=== PATIENT | female | born 1975 | race Caucasian/White ===

== ENCOUNTER 2017-01-13 13:33 | Emergency (ER) | payer OTHER ==
--- NOTE | 2017-01-13 13:49 | ED Physician Documentation ---
Upper Extremity Problem - HISTORIAN Historian: patient - HPI Chief Complaint: Upper Extremity Injury Location: R arm Onset: days ago (Mondy) Timing: still present Recent Injury: Yes (extravication of IV contrast dye) Where: home Severity: moderate Associated Symptoms: denies: fever, chills Further Comments: yes (Patient who had a MRI scan done with IV contrast dye, patient states at the time of the MRI she had some pain. The next day started to have some swelling to the right dorsal hand. Was seen in clinic and started on a medrol dose amelie. Patient has some mild improvement however today started to hasve some more swelling and tenderness/hardness to a vein in the forearm.) - ROS CONST: no problems - PAST HX Past History: cervical disc disease, other (cranial cyst) Other History: none Surgeries/Procedures: cholecystectomy, BTL Allergies/Adverse Reactions: Allergies Allergy/AdvReac Type Severity Reaction Status Date / Time codeine Allergy Verified 01/13/17 13:56 Penicillins Allergy Verified 01/13/17 13:56 Home Medications: Ambulatory Orders Medication Instructions Recorded Cyclobenzaprine HCl [Flexeril] 5 mg PO Q6 PRN #20 tablet 01/13/17 Methylprednisolone [Medrol] 4 mg PO BID #6 tablet 01/13/17 - SOCIAL HX Smoking History: less than 1 pack/day (1/2 ppd) Alcohol Use: occasionally Drug Use: none - FAMILY HX Family History: no significant history - VITAL SIGNS Vital Signs: Vital Signs Temp Pulse Resp BP Pulse Ox 98.2 F 82 16 107/69 96 01/13/17 14:19 01/13/17 14:19 01/13/17 14:19 01/13/17 14:19 01/13/17 14:19 - REVIEWED ASSESSMENTS Nursing Assessment Reviewed: Yes Vitals Reviewed: Yes Upper Extremity Problem - EXAM General Appearance: alert, mild distress Skin: warm/dry Shoulder Exam: normal inspection, non-tender Elbow/Forearm Exam: pain, soft tissue tenderness (thrombophlebitis of vein in forearm) Wrist Exam: normal inspection Hand Exam: swelling (to dorsum of hand) CVS: reg rate & rhythm, heart sounds normal Vascular: no vascular compromise Peripheral: sensation nml, motor nml Respiratory: no resp. distress. No: wheezes, rales, rhonchi Discharge Clincal Impression: Phlebitis Prescriptions: Cyclobenzaprine HCl [Flexeril] 5 mg PO Q6 PRN #20 tablet PRN Reason: muscle cramping Methylprednisolone [Medrol] 4 mg PO BID #6 tablet Referrals: Ning Briceño MD [Primary Care Provider] - 2 Days Additional Instructions: Warm compress to the forearm, take medications as prescribed. Take some Aleve 2 tablets twice a day with food as needed for pain. Home Medications: Ambulatory Orders Cyclobenzaprine HCl [Flexeril] 5 mg PO Q6 PRN #20 tablet 01/13/17 Methylprednisolone [Medrol] 4 mg PO BID #6 tablet 01/13/17 Condition: Stable Disposition: 01 HOME, SELF-CARE Decision to Admit: NO Date of Decison to Admit: 01/13/17 Decision Time: 14:13
[2017-01-13 13:55] VITALS: BP 107/69
== END 2017-01-13 14:19 | disposition home or self-care (01) ==
LOC: ED 13:33
DX: I80.9 Phlebitis and thrombophlebitis of unspecified site (principal)
CPT/HCPCS: 99283

== ENCOUNTER 2017-04-06 08:55 | Outpatient (CLI) | payer OTHER ==
--- NOTE | 2017-04-06 15:31 | Diagnostic Imaging Report ---
MAYTE MASTERS [facility] [address] [facility] [address] [place] [address]. [id number] Report Submission Date: Apr 06, 2017 9:26:16 AM CDT Patient Study Name: TIFFANY MILLER Date: Apr 06, 2017 9:05:05 AM CDT Modality Type: US Gender: F Description: US RETROPERITONEAL LIMIT : 75 Institution: [facility] Physician: MAYTE MASTERS Renal ultrasound Clinical history: Followup for possible right renal cyst seen on an outside MRI . Routine renal ultrasound and demonstrate the following: Right kidney measures 10.37 x 4.4 x 4.5 cm with total volume 110 ml. No hydronephrosis. 9 mm low density lesion in the lower pole of the right kidney felt to be consistent with small cyst . Left kidney measures 10.3 x 5.9 x 4.2 cm with total volume of 133 ml . No visible left hydronephrosis, no visible solid or cystic left renal masses. Impression: 9 mm cyst in the lower pole of the right kidney , no additional images are recquired . Normal left kidney . Electronically signed on Apr 06, 2017 9:26:16 AM CDT by: Sam BOWLES
== END 2017-04-06 08:56 ==
LOC: RAD 08:55
PROVIDERS: ATTEND Physician Assistant
DX: Q61.01 Congenital single renal cyst (principal)
CPT/HCPCS: 76775

== ENCOUNTER 2019-03-10 10:58 | Outpatient (CLI) | payer OTHER ==
--- NOTE | 2019-03-12 14:55 | Diagnostic Imaging Report ---
SIERRA LEAL [facility] [address] [address] [facility] [address] [place] [address]. [id number] Report Submission Date: Mar 10, 2019 12:01:06 PM CDT Patient Study Name: TIFFANY MILLER Date: Mar 10, 2019 10:55:14 AM CDT Modality Type: DX Gender: F Description: FOOT 3 VIEWS OR MORE : 75 Institution: [facility] Physician: SIERRA LEAL Exam: Right foot. History: Injury to great toe. AP, lateral and oblique view of the right foot are submitted. No signs of acute fracture or dislocation is seen. No bony erosions are seen. No soft tissue abnormalities identified. Impression: No bony abnormality. Electronically signed on Mar 10, 2019 12:01:06 PM CDT by: Taco BOWLES
== END 2019-03-10 11:00 ==
LOC: RAD 10:58
PROVIDERS: ATTEND Family Medicine
DX: M79.675 Pain in left toe(s) (principal)
CPT/HCPCS: 73630

== ENCOUNTER 2019-05-18 10:42 | Emergency (ER) | payer OTHER ==
[2019-05-18] MEDS ORDERED: 0.9 % SODIUM CHLORIDE 1,000 ML IV ONE (11:23)
[2019-05-18] MEDS ORDERED: ONDANSETRON HCL/PF 4 MG/ 2ML VIAL IVP ONE (11:23)
[2019-05-18 11:28] VITALS: BP 125/75
--- NOTE | 2019-06-11 10:07 | ED Physician Documentation ---
General Adult - HISTORIAN Historian: patient - HPI Stated Complaint: rapid heart rate Chief Complaint: General Adult Further Comments: yes (Late Chart: Original CHART deleted: Recreated 06/30/2018: 44 year old female patient presents with complaints of palpitations. Denies CP or SOB; no fever or chills, no vomiting; c/o nausea) - ROS CONST: no problems EYES/ENT: none CVS/RESP: none GI/: nausea MS/SKIN/LYMPH: none - PAST HX Past History: A-Fib Allergies/Adverse Reactions: Allergies Allergy/AdvReac Type Severity Reaction Status Date / Time codeine Allergy Verified 05/18/19 23:23 Penicillins Allergy Verified 05/18/19 23:23 Home Medications: Ambulatory Orders Medication Instructions Recorded Cyclobenzaprine HCl [Flexeril] 5 mg PO Q6 PRN #20 tablet 01/13/17 Methylprednisolone [Medrol] 4 mg PO BID #6 tablet 01/13/17 Ondansetron HCl Rapdis [Zofran Odt] 4 mg PO Q6 PRN #15 tab 05/18/19 - SOCIAL HX Smoking History: cigarettes - FAMILY HX Family History: No - VITAL SIGNS Vital Signs: Vital Signs Temp Pulse Resp BP Pulse Ox 97.4 F L 77 16 125/75 98 05/18/19 13:45 05/18/19 13:45 05/18/19 13:45 05/18/19 13:45 05/18/19 13:45 - REVIEWED ASSESSMENTS Nursing Assessment Reviewed: Yes Vitals Reviewed: Yes Progress - Progress Progress: No palpitations, no ectopy while in the ER. - EKG/XRAY/CT EKG: rhythm (SR, no STEMI) ED Results Lab/Radiology - Orders Orders: ED Orders Category Date Time Status Place IV Lock 1T Care 05/18/19 11:23 Active 0.9 % Sodium Chloride [Normal Saline] 1,000 ml Med 05/18/19 11:23 Discontinued IV NOW Ondansetron HCl/Pf [Zofran] Med 05/18/19 11:23 Discontinued 4 mg IVP NOW ONE EKG WITH COMPARISON Stat Ther 05/18/19 10:55 Completed General Adult Physical Exam - PHYSICAL EXAM GENERAL APPEARANCE: anxious EENT: eye inspection normal, JULIO RESPIRATORY: no resp distress, chest non-tender, breath sounds normal CVS: reg rate & rhythm, heart sounds normal, equal pulses, no murmur, no gallop, PMI nml, no JVD, no friction rub, 24 ABDOMEN: soft, no organomegaly, normal bowel sounds, no abdominal bruit, no distension SKIN: normal color, warm/dry, NR, INT, PAL, DR EXTREMITIES: non-tender, normal range of motion, no evidence of injury, no edema, J, [employer]IVE NEURO: oriented X3, CN's nml as tested, motor nml, sensation nml, mood/affect nml Discharge Clincal Impression: Dizziness Prescriptions: Ondansetron HCl Rapdis [Zofran Odt] 4 mg PO Q6 PRN #15 tab PRN Reason: Nausea / Vomiting Referrals: Ning Briceño MD [Primary Care Provider] - 2 Days Additional Instructions: Rest Increase PO fluids Follow up with PCP if symptoms do not improve. Condition: Stable Disposition: 01 HOME, SELF-CARE Decision to Admit: NO Decision Time: 13:30
== END 2019-05-18 13:45 | disposition home or self-care (01) ==
LOC: ED 10:42
DX: R42 Dizziness and giddiness (principal)
CPT/HCPCS: 93005; 96374; 99283; 99284; J2405; J7030; S1016

== ENCOUNTER 2019-05-28 12:32 | Outpatient (CLI) | payer OTHER ==
--- NOTE | 2019-05-28 15:41 | Diagnostic Imaging Report ---
PATIENT MR#: [id number] PATIENT PATIENT NAME: TIFFANY MILLER DATE OF : 1975 REFERRING PHYSICIAN: Vivek Demarco EXAM DATE: 05/28/2019 ACCESSION NUMBER: [id number] EXAM DESCRIPTION: L SPINE 2 OR 3 VIEWS CLINICAL HISTORY: CHRONIC BACK PAIN FOR SEVERAL YEARS. COMPARISON: No relevant comparison is available at the time of interpretation. L-SPINE XRAY, 3 Views: Vertebral bodies: No compression deformities. Disc spaces: Mild disc narrowing at L5-S1. Alignment: Normal lumbar lordosis without listhesis. Abdomen: Cholecystectomy clips. IMPRESSION: Mild disc narrowing at L5-S1. Read by: Dr. Ifeanyi Friedman Transcribed by: Ifeanyi Friedman Transcribed Date: 05/28/2019 3:40:29 PM Electronically signed by: Dr. Ifeanyi Friedman Date signed: 05/28/2019 3:40:29 PM
--- NOTE | 2019-05-28 15:43 | Diagnostic Imaging Report ---
PATIENT MR#: [id number] PATIENT PATIENT NAME: TIFFANY MILLER DATE OF : 1975 REFERRING PHYSICIAN: Vivek Demarco EXAM DATE: 05/28/2019 ACCESSION NUMBER: [id number] EXAM DESCRIPTION: LT HIP 2VIEW COMPLETE CLINICAL HISTORY: PAIN IN LEFT HIP STARTING IN THE LAST WEEK, NO KNOWN INJURY/SURGERY COMPARISON: No study for comparison is available at the time of interpretation. TECHNIQUE: DX left hip, 2 views Osseous structures: The osseous structures are normal with no evidence of fracture or dislocation. Th ere is no osseous lesion or periosteal reaction. Joint spaces: The bones are well aligned. No articular surface abnormality is noted. Small acetabular osteophyte. Soft tissues: There is normal appearance of the soft tissues with no radiopaque foreign body seen. IMPRESSION: Minimal acetabular osteophyte formation. No acute osseous abnormality. Read by: Dr. Ifeanyi Friedman Transcribed by: Ifeanyi Friedman Transcribed Date: 05/28/2019 3:43:07 PM Electronically signed by: Dr. Ifeanyi Friedman Date signed: 05/28/2019 3:43:07 PM
== END 2019-05-28 12:42 ==
LOC: RAD 12:32
PROVIDERS: ATTEND Family Medicine
DX: M54.42 Lumbago with sciatica, left side (principal)
CPT/HCPCS: 72100